=== PATIENT | male | born 1990 | race Caucasian/White ===

== ENCOUNTER 2019-02-15 10:06 | Emergency (ER) | payer BC ==
[~2019-02-15] VITALS: Ht 185.4 cm; Wt 93.0 kg
[2019-02-15] MEDS ORDERED: ESCITALOPRAM OX10 MG PO (10:32)
== END 2019-02-15 11:36 | disposition home or self-care (01) ==
LOC: ED 10:06
DX: S29.012A Strain of muscle and tendon of back wall of thorax, initial encounter (principal); Z88.0 Allergy status to penicillin; Z79.899 Other long term (current) drug therapy; X58.XXXA Exposure to other specified factors, initial encounter
CPT/HCPCS: 71046; 99283-25